=== PATIENT | female | born 1990 | race Caucasian/White ===

== ENCOUNTER 2016-08-04 18:43 | Inpatient (IN) | payer OTHER ==
[~2016-08-04] VITALS: Ht 167.6 cm; Wt 65.9 kg
--- NOTE | 2016-08-04 18:46 | ED.REPORT ---
HPI-Psychiatric Illness Date of Service Aug 04, 2016 ED Provider: Gisel Dodge MD Patient is a 25 year old female with a history of bipolar disorder, hypothyroidism, and prior catatonic episodes with psychiatric admissions who presents to the ED via [place] [facility] for a mental health evaluation after she demonstrated bizarre behavior this evening. [place] reports that they were called out to a location where a female was refusing to get out of a vehicle that did not belong to her. The patient took approximately 5 seconds to answer any questions and her answers did not make sense. Patient stated that the car belonged to her and that she could do whatever she wanted. Patient appeared to be under the influence of some substance and so was transferred to [facility] evaluation. Patient is completely uncooperative and is unable to provide any history or participate in the evaluation. The patient simply stares off into space. She refuses go into a medical gown and will not follow commands of police or staff. The patient does not appear to be taking proper care of herself. Patient is seen to have sores on her bilateral feet, with packing in a sore on her left foot. She has 9x previous admissions involuntary psychiatric admissions, including an admission to [facility]. Nursing Notes Stated Complaint: MENTAL HEALTH EVAL Nursing Notes Reviewed: Yes Allergies: Coded Allergies: No Known Allergies (Unverified , 08/04/16) General Time Seen by MD: 18:44 Chief Complaint Bizarre behavior Hx Obtained From: Police Unable to Obtain Hx: Uncooperative Risk-Psychiatric Illness Suicide Risk Stratification Suicide Risk Factors - Adult: : Prior psych admission: Substance abuse RF Statements: Risk factors N/A Past Medical History Past Medical History Bipolar disorder history of catatonic episodes with prior psychiatric admissions (9x total, with one to [facility]) history of substance abuse hypothyroidism Past Surgical History none reported Smoking History Unknown if Ever Smoker Social History Other Social History: Local resident Ambulatory Status Independent Review of Systems Unable to Obtain ROS Uncooperative Physical Exam Initial Vital Signs Vital Signs (First) Date Time Temp Pulse Resp B/P Pulse Ox O2 Delivery O2 Flow Rate FiO2 08/04/16 20:00 36.6 77 16 107/68 99 Room Air Initial VS: Reviewed Head / Eyes: Atraumatic, Normocephalic, PERRL ENT: Conjunctiva normal, No scleral icterus Neck: Supple, Full range of motion Respiratory: Breath sounds normal, Clear to auscultation, No respiratory distress Cardiovascular: Regular rate & rhythm, Heart sounds normal Abdomen / GI: Soft, Non-tender Skin: Warm, Dry, No cyanosis General/Constitutional: Awake, Alert Behavior: Positive: Uncooperative Patient refuses to speak or answer questions, simply stares. Unkempt. Neurologic: No motor deficits, No sensory deficits Unable to Evaluate: Positive: Uncooperative Upper Extremity / MS: No deformity, Neurologic intact, Vascular intact Lower Extremity / Pelvis / MS: No deformity, Neurologic intact, Vascular intact Ankle / Foot: Neurologic intact, Vascular intact Quarter inch ulceration to the left foot, with good granulation. Not actively oozing. Interpretation & Diagnostics Interpretation & Diagnostics: Urine Tox Screen: Positive for Marijuana, Methamphetamine, Opiates, TCAs, and Amphetamines. All else negative. Lab Results Interpretation Result Diagram: 08/04/16195408/04/161954 Test 08/04/16 19:55 08/04/16 20:50 08/04/16 21:11 White Blood Count 7.1th/mm3 (3.8-10.1) Red Blood Count 4.33mil/mm3 (3.90-5.20) Hemoglobin 12.8g/dL (12.0-15.6) Hematocrit 38.9% (35.0-46.0) Mean Corpuscular Volume 89.8fL (81-100) Mean Corpuscular Hemoglobin 29.6pg (27.0-35.0) Mean Corpuscular Hemoglobin Concent 32.9% (32.0-37.0) Red Cell Distribution Width 15.0% (12.3-15.4) Platelet Count 346bil/L (150-400) Neutrophils (%) (Auto) 53.0% (40-74) Lymphocytes (%) (Auto) 28.9% (14-46) Monocytes (%) (Auto) 10.4% (4-12) Eosinophils (%) (Auto) 7.0% (0-5) Basophils (%) (Auto) 0.6% (0-3) Sodium Level 138mEq/L (134-144) Potassium Level 3.4mEq/L (3.5-5.2) Chloride Level 100mEq/L (97-108) Carbon Dioxide Level 22mmol/L (18-29) Blood Urea Nitrogen 5mg/dL (6-20) Creatinine 0.74mg/dL (0.57-1.00) Estimat Glomerular Filtration Rate 136mL/min (>59) Glucose Level 105mg/dL (60-99) Calcium Level 9.3mg/dL (8.5-10.1) Total Bilirubin 0.8mg/dL (0.0-1.2) Aspartate Amino Transf (AST/SGOT) 44U/L (0-50) Alanine Aminotransferase (ALT/SGPT) 42U/L (0-32) Alkaline Phosphatase 88U/L (25-150) Total Protein 7.2g/dL (6.4-8.4) Albumin 4.1g/dL (3.4-5.0) Procalcitonin 0.05ng/mL (0.00-0.08) Thyroid Stimulating Hormone (TSH) 25.860uIU/mL (0.450-4.500) Free Thyroxine 1.36ng/dL (0.82-1.77) Alcohols < 10mg/dL (0-10) Lactic Acid Level 1.9mmol/L (0.4-2.0) Urine Color Dark yellow (YELLOW) Urine Appearance Cloudy (CLEAR,HAZY) Urine pH 6.0 (5.0-8.0) Urine Specific [place] >1.030 (1.003-1.035) Urine Protein Tracemg/dL (NEG,TRACE) Urine Glucose (UA) Negativemg/dL (NEGATIVE) Urine Ketones Tracemg/dL (NEGATIVE) Urine Occult Blood Small (NEGATIVE) Urine Nitrite Negative (NEGATIVE) Urine Bilirubin Moderate (NEGATIVE) Urine Ictotest Positive (Negative) Urine Urobilinogen Normalmg/dL (NORMAL) Urine Leukocyte Esterase Small (NEGATIVE) Urine RBC 3-10/hpf (0-2) Urine WBC >50/hpf (0-5) Urine Epithelial Cells Moderate/hpf (NONE-MOD) Urine Crystals None seen (NONE SEEN) Urine Bacteria Many/hpf (NONE-FEW) Urine Hyaline Casts None/lpf (NONE) Urine Granular Casts None seen (NONE SEEN) Urine Waxy Casts None seen (NONE SEEN) Urine Red Blood Cell Casts None seen (NONE SEEN) Urine White Blood Cell Casts None seen (NONE SEEN) Urine Mucus None seen (None Seen) Urine Trichomonas None seen (NONE SEEN) Urine Yeast None (NONE SEEN) Urinalysis Comment None Urine Culture Reflexed Indicated Re-Eval/Medical Decision Med Decision/Clinical Course 25-year-old female with extensive psychiatric history and substance abuse here by police nonresponsive and combative. Differential diagnosis includes but is not limited to psychiatric break versus substance abuse versus catatonia versus infectious process. CBC and CMP are unremarkable. TSH is elevated, however, free T4 is within normal limits. Patient does have UTI. She was given a gram of Rocephin in the emergency department. She also has multiple superficial cellulitic areas on her feet. She is otherwise medically cleared and seen by [facility], however, she was to drowsy from the Benadryl, Haldol, and Ativan she was given at onset of her stay here for combativeness. He recommends that she continue to metabolize medications and be reevaluated in the morning. Her care was transitioned to Dr. Slim Mittal who will give her a prescription for Keflex prior to her transfer to psychiatric facility. I anticipate that she will be detained. She is gravely disabled. Re-Evaluation/Progress #1: Time of Eval: 18:58 Re-Evaluation/Progress Note: Patient was evaluated and placed into seclusion, as the patient is uncooperative and trying to leave the ED. Guilherme Castano called. Re-Evaluation/Progress #2: Time of Eval: 20:24 Re-Evaluation/Progress Note: Rechecked the patient, who has now calmed down and is sleeping. She awakes easily but does not answer questions. Patient was examined. Re-Evaluation/Progress #3: Time of Eval: 00:00 Re-Evaluation/Progress Note: Rechecked the patient. She awakes easily but does not respond to questions. Consultation #1: Consulted With: cooler worker Call Returned at: 20:59 Note: Spoke with the ED PACKAGE DRIER, who has evaluated the patient. She is currently too sedated to cooperate with psychiatric evaluation. He suggests DCR dispatch once she is awake. Consultation #2: Consulted With: cooler worker Call Returned at: 00:51 Note: Spoke with the DCRCarl. He agrees to come evaluate the patient. Consultation #3: Call Returned at: 01:40 Note: DCR tried to evaluate the patient in ED, but she is now too sedated to participate. He suggests that the patient sleep in the ED overnight and that she be re-evaluated in the AM. [facility] has a bed available for the patient and will "hold" that bed for her unless another ED patient needs placement. Discharge & Departure Shift Change Sign-Out Patient Care Transferred: Yes Discussed Complaint(s): Yes Laboratory Evaluation: Back, reviewed by me Additonal Information: Sedated, awaiting PACKAGE DRIER evaluation Impression: Primary Impression: Catatonic agitation Additional Impressions: UTI (urinary tract infection) Urinary tract infection type: acute cystitis Hematuria presence: without hematuria Qualified Code: N30.00 - Acute cystitis without hematuria Acute situational disturbance Polysubstance abuse Referrals: [facility] Care Transferred to: Dr. Mittal Care Transferred at: 03:00 Scribe Attestation Portions of this note were transcribed by Sayra Andujar. I, Dr. Dodge personally performed the history, physical exam and medical decision-making; I reviewed and confirmed the accuracy of the information in the transcribed note. Signed by: Gary Montoya, 08/05/2016 0155 Gisel Dodge MD Aug 04, 2016 18:46 Sayra Andujar Aug 04, 2016 19:18
[2016-08-04] MEDS ORDERED: Haloperidol 5 mg/mL Inj ONE (18:47)
[2016-08-04 20:00] VITALS: BP 107/68; PULSE 77; RESP 16; O2SAT 99
[2016-08-04 20:07] LABS: BASOPHILS % (AUTO) 0.6 % (0-3); MONOCYTES % (AUTO) 10.4 % (4-12); Mean Corpuscular Hemoglobin 29.6 pg (27.0-35.0); Mean Corpuscular Volume 89.8 fL (81-100); Platelet Count 346 bil/L (150-400)
[2016-08-04 22:02] LABS: APPEARANCE,URINE CLOUDY (CLEAR,HAZY); COLOR,URINE DARK YELLOW (YELLOW); OCCULT BLOOD,URINE SMALL (NEGATIVE); UROBILINOGEN,URINE NORMAL (NORMAL)
[2016-08-04 22:04] LABS: ICTOTEST,URINE POSITIVE (Negative)
[2016-08-05] MEDS ORDERED: cefTRIAXone Inj 1,000 MG, Lidocaine PF 1% Inj 2.1 ML in Syringe 0 EACH IM ONE ×3
[2016-08-05 01:35] VITALS: BP 112/71; PULSE 94; RESP 14; O2SAT 95
[2016-08-05 05:33] VITALS: BP 113/67; PULSE 72; RESP 14; O2SAT 96
[2016-08-05] MEDS ORDERED: Ammonia Aromatic Inhalant Ampule INHALATION ONE (11:34)
[2016-08-05 14:20] VITALS: BP 123/78; PULSE 111; RESP 20; O2SAT 98
[2016-08-05] MEDS ORDERED: Benzocaine-Menthol Lozenge 2/Pkg PO PRN (18:35)
[2016-08-05] MEDS ORDERED: Alum-Mag Hydrox-Simeth 30 mL Suspension PO PRN (18:35)
[2016-08-05] MEDS ORDERED: Magnesium Hydroxide 10 mL Oral Concentration PO PRN (18:35)
[2016-08-05] MEDS ORDERED: LORazepam 1 mg Tablet PO PRN (18:45)
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
--- NOTE | 2016-08-05 20:57 | NUR ---
A Note 08/05/16 D- Patient came onto the unit at 1800. She ate a snack provided with her by the emergency room. Patient took a shower and changed her clothes. She appears well groomed. A- Patient declined to sign any of her paperwork. She used verbally abusive language in opposition to the admission process. She then requested to take a shower. After the shower she appeared more calm and cooperative, but declined to see her family without heavy encouragement. She visited for a few minutes before returning to bed. Patient had been uncooperative with returning the scrubs from the Emergency Department which had strings. Staff was able to get them when she went to sleep. Patient asked for her belongings which were being inventoried and washed. She has since been in bed. P- Continue current treatment plan.
--- NOTE | 2016-08-06 05:19 | NUR ---
nursing, nights, 11-7 s/o- has appeared to sleep after 2129 during q 15 minute assessments. a- no apparent distress. p- monitor behavior/emotional state, quality, times and amount of sleep, use and effect of medication. brian
[2016-08-06 09:00] VITALS: BP 117/75; PULSE 106; RESP 14
[2016-08-06] MEDS ORDERED: LEVO100T6 PO (12:15)
[2016-08-06] MEDS ORDERED: Benzocaine-Menthol Lozenge 2/Pkg PO PRN (12:30)
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
--- NOTE | 2016-08-06 14:18 | PCM.CHPMED ---
Subjective Date of Service: Aug 06, 2016 Primary Physician: Admitting Physician: Juan Posada MD Primary Care Physician: Sharyn Attending Physician: Juan Posada MD Admit Status: Admit to [facility] Team Chief Complaint: Chief Complaint: Medicine consulted for hypothyroidism. History of Present Illness: History limited due to uncooperative patient to talk. answers " i don't know "to most questions 25-year-old lady is was medical history of hypothyroidism, bipolar disorder, polysubstance abuse currently admitted to mental health unit due to bizarre behavior . She states she was diagnoses with hypothyroidism years ago. She admits she does not take her thyroid replacement. Last time she took" months". Denies weight gain or constipation. She also has multiple foot ulcers. Denies urinary complaint hospital course: Admitted to [facility], initial labs urinalysis with pyuria , ceftriaxone given in emergency room. Low potassium 3.4, TSH 25, free T4 1.36 , urine toxicology Positive for Marijuana, Methamphetamine, Opiates, TCAs,and Amphetamines. Medicine consulted for hypothyroidism, UTI, multiple foot ulcers. Review of Systems: Review of systems limited due to uncooperative patient [facility] Past Medical History Hypothyroidism Bipolar disorder Polysubstance abuse Surgical History unknown,she says " I don't know" Home Medications synthroid 100mcg daily Allergies: Coded Allergies: No Known Allergies (Unverified , 08/04/16) Family History Family History unable to obtain , uncooperative patient Social History Hx Substance Use: Yes (currently using) Smoking Status: Unknown if Ever Smoker Exam Vital Signs Vital Sign - Last Date Time Temp Pulse Resp B/P Pulse Ox O2 Delivery O2 Flow Rate FiO2 08/05/16 14:20 36.5 111 20 123/78 98 Room Air General: Alert, Oriented X3, Other (uncooperative) Head: Normal Neck: Supple, No Thyromegaly Chest & Lungs: Clear to auscultation & percussion Cardiovascular: Exam Unremarkable Abdomen: Non-tender Extremities: Other (multiple( 3) small ulcers on both foot on plantar side,no discharge.) Neurological: Grossly Neurologically Intact Lab and Diagnostics Result Diagram: 08/04/16195408/04/161954 Assessment & Plan Assessment 25-year-old lady is was medical history of hypothyroidism, bipolar disorder, polysubstance abuse currently admitted to mental health unit due to bizarre behavior . # asymptomatic UTI, acute -Pyuria on urinalysis, urine culture growing pansensitive Escherichia coli -will treat with Keflex for 2 more days. #Hypothyroid state due to medication noncompliance, chronic -Patient used to take Synthroid 100 mcg daily -TSH 25, free T4 1.36 -continue prior dose of 100mcg daily -needs to recheck TFT in 6-8 weeks outpatient # multiple foot ulcers -local wound care by RN # bipolar disorder -management per psychiatrist no need for dvt and GI prophylaxis ,patient ambulatory default full code, thank you for the consult ,will follow along with you. Problems: copies to: Juan Posada MD, Melaku MD Aug 06, 2016 14:18
[2016-08-06] MEDS ORDERED: Potassium Chloride 20 mEq SR Tablet PO ONE (14:20)
--- NOTE | 2016-08-06 16:19 | NUR ---
Nursing Notes [id number] S: Can you just leave me alone O: Patient spent most of his day in room, with her eyes closed and in her bed, arousable to voice. Pt. appears disheveled, her hair appears matted. Pt did not participate in group. Isolated herself today. A: Pt affect flat. Pt has some open wounds on her feet bilat and has a closed vesicle on her left hand. Pt refused to let me change her dressings on her feet. Pt refused to let medical hospitalist examine her feet as well. When accompanying the medical MD to her room pt states I dont like her referring to me. This RN asked her why is it that she feels that she would say that, then she all of a sudden had an Amharic accent and just said she I just dont Pts TSH is 25.86, medical hospitalist consulted on patient. Started her on 50mcg of levothyroxine, started on cephalexin for UTI P: Monitor for safety and response to treatment. Follow plan of care.
--- NOTE | 2016-08-06 16:32 | HP ---
[address] [address] HISTORY AND PHYSICAL PATIENT: CRESCENCIO MARTI : 1990 MR#: [id number] ADMIT: 08/05/2016 JOB ID: [id number] IDENTIFICATION: The patient is a 25-year-old, white female. Currently, she is homeless. She had been living with her boyfriend in his car. She is unemployed. The car was parked at [employer] in [place]. REASON FOR ADMISSION: Police were called to evaluate the patient, who was inside another person's car and refusing to get out. She stated she owned the car and she owned the business. She appeared highly intoxicated. HISTORY OF PRESENT ILLNESS: Client presents today for evaluation and treatment of psychosis. She is complaining of feeling exhausted and needing to rest. The ED staff and the police noted bizarre behavior. She was uncooperative, a poor historian, and combative. She believed that the vehicle she was in was her car and she believes that she owned a business. A priscilla bruner was called to get her out of the police car and into the emergency department. I met with her for a relatively brief evaluation as she was a poor historian and would essentially respond too none of my questions. I reviewed course and records kept by [facility], as well as her fci papers. Client's main issue is an altered mental status and significant intoxication and addiction. Client is a poor historian and I am unable to identify how long this has been present. There is a report that she has been detained nine times on involuntary treatment holds in [place]. She stated that she grew up in the [place] [facility] and has been to [facility] for 10 weeks in 2016, as well as [facility], and [facility]. I do not have any records at this time. At present, her condition is of a severe intensity, manifesting with symptoms of thought disorganization, emotional lability, impaired executive cognitive function, and impaired reality testing and judgment. All the above appears to be made worse by poor sleep, by drug use (client's urine tox was positive for amphetamines, opiates, and THC). She could not participate in a psychiatric or physical review of systems. PAST MEDICAL HISTORY: MEDICATIONS: Client denies. There is a chart note that she was on Synthroid from the ED due to impaired thyroid functioning. ALLERGIES: None. ILLNESSES: Hypothyroidism. A 1/4-inch lesion on left foot. FAMILY MEDICAL HISTORY: Unknown. PAST PSYCHIATRIC HISTORY: Client reportedly at [facility] for 10 weeks in 2016, at [facility] from January to February 2016. There are also reports that she has been admitted to [facility] and [facility] inpatient units. PSYCHOSOCIAL HISTORY: Client was born in [place]. She was unable to answer questions about micrographics services supervisor trauma or education. She refused to answer any questions about drug use. LETHALITY: Client did deny suicidal ideation. DENOMINATIONAL, RELATIONSHIP, LEGAL STATUS: All unknown. PHYSICAL EXAMINATION: Client appeared well-hydrated. Her vital signs were 123/78, pulse was 111 respiratory 20, afebrile. Physical exam reviewed from the ED and normal except for 1/4-inch lesion on left foot. MENTAL STATUS: Client disheveled, poor eye contact. Behavior: Lethargic and withdrawn. Attitude: Aloof, detached. Speech: Monotone, mute,, or one-word responses. Mood was dysphoric. Affect: Congruent, flat, and restricted. Thought process: Client is unable to relate a coherent history or unwilling. She did not appear to be responding to internal stimuli. Thought content significant for poverty of thought, although she did deny suicidal ideation or auditory hallucinations. Client refused to participate in orientation, memory, or attention aspects of my exam. Insight and judgment severely impaired. Impulse control: Unable to handle impulses of fear and hunger. Reality testing markedly impaired. Competence to handle current stressors is severely impaired. IMPRESSION: The patient is a 25-year-old, white female, who has been homeless and using multiple illicit substances, ranging from heroin to methamphetamine to marijuana. She was found severely confused in a car owned by a local business network design architect. She was placed on a 72-hour involuntary treatment hold for grave disability and admitted for evaluation and stabilization. She believed that she owned the car that she was in, as well as the business that the car was parked in front of. She was combative with police when she arrived to the ED and a code bruner was required to get her from the police car to the ED. In the ED, she received Haldol, Benadryl, and Ativan, and has been relatively sedated ever since. She also received a dose of Rocephin and has been placed on Keflex 500 b.i.d. for an urinary tract infection that was cultured positive for E. coli. Her TSH was 28 in the ER and free T4 was 1.36. Client carries multiple different diagnoses from other inpatient units, ranging from bipolar disorder to schizophrenia, to substance-induced thought disorder. It would be helpful to have these summaries in order to further clarify diagnosis. DIAGNOSIS: [place] I. Psychosis, unspecified. Rule out substance-induced psychosis. Rule out schizophrenia. Rule out bipolar mood disorder. [place] II. Deferred. [place] III. 1. Urinary tract infection, Escherichia coli. 2. A 1/4-inch ulceration on left foot. [place] IV. Severe. [place] V. Current Global Assessment of Functioning equal to 25. PLAN: Recommend client be admitted to our unit and be provided with a high degree of safety through the structure and active adult engagement she will receive here. Will have her participate in one-to-one unit and group activities focused on improving coping skills, reality based thinking and helping her identify a treatment plan should desire for narcotics return after discharge. I have ordered an Internal Medicine consult for recommendations around potential thyroid replacement. Will start client on Synthroid 50 mcg daily pending recommendations from Internal Medicine. I have also recommended a wound consult to help with dressing changes and recommendations regarding foot ulcer. Client is on a 72-hour involuntary treatment hold for grave disability. Anticipate 7-10 day stay, dependent on how client responds to treatment. Will start Zyprexa 10 mg h.s. for psychotic symptoms. MTDD
--- NOTE | 2016-08-06 16:38 | HP ---
[address] [address] HISTORY AND PHYSICAL PATIENT: CRESCENCIO MARTI : 1990 MR#: [id number] ADMIT: 08/05/2016 JOB ID: [id number] CONTINUATION: Started was started on Keflex 500 b.i.d. for an urinary tract infection that was cultured for E. coli. She was also given a dose of Rocephin. Her TSH was 28 in the ER and free T4 was 1.36. Client carries multiple different diagnoses from the inpatient unit she had been on, ranging from bipolar disorder to schizophrenia, to substance-induced thought disorder. It would be helpful to have some of these summaries in order to further clarify diagnosis. DIAGNOSIS: Durham I. Psychosis, unspecified. Rule out substance-induced psychosis. Rule out schizophrenia. Rule out bipolar mood disorder. Durham II. Deferred. Durham III. 1. Urinary tract infection, Escherichia coli. 2. A 1/4-inch ulceration on left foot. Durham IV. Severe. Durham V. Current Global Assessment of Functioning equal to 25. PLAN: Recommend client be admitted to our unit and be provided with a high degree of safety through the structure and active adult engagement she will receive here. Will have her participate in one-to-one unit and group activities focused on improving coping skills, reality based thinking and helping her identify a treatment plan should desire for narcotics return after discharge. I have ordered an Internal Medicine consult for recommendations around potential thyroid replacement. Will start client on Synthroid 50 mcg daily pending recommendations from Internal Medicine. I have also recommended a wound consult to help with dressing changes and recommendations regarding foot ulcer. Client is on a 72-hour involuntary treatment hold for grave disability. Anticipate 7-10 day stay, dependent on how client responds to treatment. Will start Zyprexa 10 mg h.s. for psychotic symptoms.
--- NOTE | 2016-08-06 19:06 | NUR ---
Observations 0900 to 2130 Pt affect and mood was isolative, labile and flat. Pt speech and eye contact was ok. Pt was in bed most of the day. Pt ate meals in D.R. and ate approximately 100% of meals. Pt declined to attend group and unit activities today. Pt declined to attend community meeting and did not set a goal for the day. Pt was unsocial and keeps to herself. Pt took a shower in the evening. Pt maintained behavior throughout the shift. Pt was polite and cooperative. Pt was observed every 15 minutes throughout the shift as ordered.
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
--- NOTE | 2016-08-07 05:34 | NUR ---
Roustabout 11pm to 7am Pt slept through the night with no interruptions. Monitored q 15 minutes for safety, location and accountability.
--- NOTE | 2016-08-07 12:30 | PCM.DIMED ---
Discharge Instructions Date of Service Aug 07, 2016 Dates of Hospitalization Aug 05, 2016 at 16:54 Discharge Diagnosis Discharge Diagnosis Substance induced Mood DO Substance Induced Psychosis Diet No restrictions Activity No restrictions Stan Kelly DO Aug 07, 2016 12:30
[2016-08-07] MEDS ORDERED: LEVO100T6 PO (12:31)
--- NOTE | 2016-08-07 15:04 | NUR ---
Portrait Painter./ c.m. S.:"I'm entitled to have my privacy and confidentiality. I don't need your help..." O.: met with pt., doctor and med. student together to discuss pt.'s progress. She slept well last night. She denied SI/HI, denied AH/VH. She said that she was going to stay with her mother, family member or a friend if she is discharged today. She refused help with follow up arrangements. She refused to give a name of a doctor with whom she would follow up for her medical and mental health issues. "I'm entitled to have my privacy. This is a confidential information." She accepted a phone # for [facility] in a case of emergency. She didn't want to share her information without her control. Pt. also refused to give staff a name of her friend who was going to pick her up. A.: pt. is quiet, more social with male peers, looks entitled and easily frustrated. P.: monitor behavior, follow care plan.
--- NOTE | 2016-08-07 15:17 | NUR ---
Obs Dayshift Pt refused to participate in morning activities, upon DC pt took an hour long shower, trying to refuse to put street clothes on stating that she was more comfortable in our scrubs and wearing a towel on her head. Pt signed DC paperwork and left it behind refusing to take it, and refusing staff assistance. Pt stated many times that she saw her frined walking up and was waiting downstairs for her. Pt refused to call [facility]. DC'd approx [phone]
--- NOTE | 2016-08-07 16:01 | NUR ---
Nursing: Day shift: Also Discharge. Mariia was lying on bed with towel on head most of the morning. She was reluctant to allow the hospitalist to check wounds. However, these were examined, one was cultured, and all were redressed. Pt complained about jingle writer being rude to her. After she received information that she had been discharged, she replied that it would be better for her if she went tomorrow. However, she packed her belongings. She was given crisis respite number, her mother's number and the number of a friend. She first stated that she would be picked up by her mother. A few minutes later, she stated that a friend would pick her up. That she would just leave unit and wait for the friend at the [facility] entrance. She signed all paperwork for discharge. However, she did not put the papers with her belongings and when she left, her papers were found in her room. Pt DID have prescription for Levothyroxine with her as she left the unit. Pt left the unit, [id number], with belongings, at 1415. Pt had refused any follow up appointments or arrangements. Denied intent to hurt self to jingle writer as she left the unit. Addendum. Before 1530, unit received a call that pt was still sitting on bench in front of [facility] entrance. Pt had vacated that area by 1600. Addendum: 08/07/16 at 1648 by ED RAYO RN Outcomes: Not all met at time of discharge. Since pt refused follow up care arrangements, safe self care, optimal level of fuction, not met. Pt interacted minimally with pers not meeting the 'Optimal appropriate social interactions."
--- NOTE | 2016-08-07 19:02 | PCM.PNMED ---
Subjective Date of Service Aug 07, 2016 Subjective patient more cooperative today to be examined,afebrile Exam Vital Signs Vital Sign - Last Date Time Temp Pulse Resp B/P Pulse Ox O2 Delivery O2 Flow Rate FiO2 08/06/16 09:00 36.4 106 14 117/75 08/05/16 14:20 98 Room Air Exam General: Alert, Oriented X3, Other (uncooperative) Head: Normal Neck: Supple, No Thyromegaly Chest & Lungs: Clear to auscultation & percussion Cardiovascular: Exam Unremarkable Abdomen: Non-tender Extremities: Other (multiple( 4) small ulcers on both foot on plantar and dorsal side,left dorsal ulcer 2x2 cm with some discharge,sent for culture.) Neurological: Grossly Neurologically Intact IVs and Medications Medications Reviewed: Medications were reviewed in detail Lab and Diagnostics Result Diagram: 08/04/16195408/04/161954 Assessment & Plan 25-year-old lady is was medical history of hypothyroidism, bipolar disorder, polysubstance abuse currently admitted to mental health unit due to bizarre behavior . # asymptomatic UTI, acute -Pyuria on urinalysis, urine culture growing pansensitive Escherichia coli -continue Keflex for 1 more day to complee 3 day course. #Hypothyroid state due to medication noncompliance, chronic -Patient used to take Synthroid 100 mcg daily -TSH 25, free T4 1.36 -continue prior dose of 100mcg daily -needs to recheck TFT in 6-8 weeks outpatient # multiple chronic foot ulcers -local wound care by wound care -no need for antibiotics ,local wound care seems to suffice # bipolar disorder -management per psychiatrist no need for dvt and GI prophylaxis ,patient ambulatory default full code, thank you for the consult ,will sign off.Please call hospitalist team if any questions . Toi Cote MD Aug 07, 2016 19:02
--- NOTE | 2016-08-08 00:34 | DIS ---
[address] [address] DISCHARGE SUMMARY PATIENT: CRESCENCIO MARTI : 1990 MR#: [id number] ADMIT: 08/05/2016 JOB ID: [id number] DIS: 08/07/2016 ADMITTING DIAGNOSES INCLUDE: AXIS I: 1. Psychotic disorder, not otherwise specified. 2. Rule out substance induced psychoses. 3. Rule out bipolar disorder, not otherwise specified. AXIS II: Deferred. AXIS III: 1. Urinary tract infection. 2. Ulceration of her left foot. AXIS IV: Severe. AXIS V: Global Assessment of Functioning at current 25. DISCHARGE DIAGNOSES INCLUDE: AXIS I: 1. Substance induced psychoses. 2. Substance induced mood disorder. AXIS II: Cluster B personality features. AXIS III: 1. Urinary tract infection. 2. Ulceration of her left foot. AXIS IV: Stressors are noted for chronic substance abuse, including methamphetamine and opiates. AXIS V: Global Assessment of Functioning at current 40. REASON FOR ADMISSION: Patient was a 25-year-old female with noted history of admission through the emergency department after [facility] detained with considerable concerns of agitation, irritability and altered mental status. During the course of hospitalization, patient was given medications, including Zyprexa, with significant improvement of her overall presentation. She reportedly remains quite dysphoric, irritable and labile, however, with refusal to cooperate with staff interventions. She isolated to her room for much of her stay, but did participate in interventions. During the course of hospitalization, patient did have consultation from the hospitalist team due to ulcerations to her feet and also significant difficulties with UTI and thyroid presentation. Recommendations from the hospitalist team were to finish off her antibiotic regimen and also follow up care for wound care as related to her ulcerations. They did not feel that her Synthroid needed to be altered at this time. On the day of discharge, the patient met with myself, counter caser and medical student, and declined any potential referrals for chemical dependency treatment. She was open to referrals to [facility] for interim care, and calls will be placed accordingly. She indicated that she is not on any medications at this time for psychotropic reasons and deferred any further interventions of supportive care. CONDITION ON THE TIME OF DISCHARGE: Patient's mood was notably dysphoric. Her affect was irritable, labile. Her thought process showed no evidence of racing thoughts, flight of ideas, loose or disconnected thinking. Her thought content: There was no evidence of suicidal ideation, intent, or plan. No evidence of homicidal ideation. She appeared to be mildly paranoid and expressed delusions of reference identifying that she believed that the [facility] built the current hospital. She chuckled somewhat inappropriately. She was alert, oriented to time and place. Her attention and concentration were poor. Insight and judgment were deemed poor. DISCHARGE PLANS INCLUDE: 1. Recommendations to transition to [facility] in [place] for step-down care and support. 2. Patient was encouraged to consider referrals to chemical dependency treatment, but has declined at this time. 3. No recommendations for medications given at this time, other than continuation of her doses of Synthroid. 4. Patient was encouraged to follow up with medical care at local clinics for ulcerations of her feet, however, there is no recommendations for antibiotic regimen at this time.
== END 2016-08-07 14:15 | disposition home or self-care (01) | DRG 897 ==
LOC: SED 18:43 → MERGE 08-05 16:54 → EDUNIT# 08-05 16:54 → MHC 08-05 16:54
PROVIDERS: ADMIT Psychiatry & Neurology Psychiatry; ATTEND Psychiatry & Neurology Psychiatry
DX: F19.150 Other psychoactive substance abuse with psychoactive substance-induced psychotic disorder with delusions (principal); N39.0 Urinary tract infection, site not specified; Z65.3 Problems related to other legal circumstances; Z59.0 Homelessness; B96.20 Unspecified Escherichia coli [E. coli] as the cause of diseases classified elsewhere; L97.529 Non-pressure chronic ulcer of other part of left foot with unspecified severity; Z91.19 Patient's noncompliance with other medical treatment and regimen; E03.9 Hypothyroidism, unspecified

== ENCOUNTER 2016-09-25 13:31 | Emergency (ER) | payer OTHER ==
[~2016-09-25 13:31] MED LIST: LEVO100T6 PO
[2016-09-25 13:40] VITALS: BP 103/72; PULSE 70; RESP 18; O2SAT 100
[2016-09-25 15:49] LABS: Mean Corpuscular Hemoglobin 29.2 pg (27.0-35.0); Platelet Count 352 bil/L (150-400)
[2016-09-25 16:52] LABS: BASOPHILS % (AUTO) 2 % (0-3); EOSINOPHILS % (AUTO) 0 % (0-5); MONOCYTES % (AUTO) 9 % (4-12); NEUTROPHILS % (AUTO) 41 % (40-74)
--- NOTE | 2016-09-25 21:21 | ED.REPORT ---
HPI-Psychiatric Illness Date of Service September 25, 2016 ED Provider: Regis Rosen History of Present Illness: 25yo female brought in by police for trespassing and bizarre behavior, here for prison clearance. Police now report they have a name for her and will give her a court date. Pt. refuses to answer any questions on initial exam. Nursing Notes Stated Complaint: FIT FOR CORRECTION Chief Complaint: Psychiatric Complaint Nursing Notes Reviewed: Yes General Time Seen by MD: 15:07 Chief Complaint Bizarre behavior Hx Obtained From: Patient Arrived By: Police Onset Occurred: Onset unknown Symptom Duration: Duration unknown Immunizations: Unknown Risk-Psychiatric Illness Risk Notes: Patient refuses to talk Suicide Risk Stratification RF Statements: Risk factors reviewed (but patient refuses any answers) Past Medical History Past Medical History Notes: unable to assess. Ambulatory Status Independent Review of Systems Unable to Obtain ROS Patient condition, Uncooperative Physical Exam Initial Vital Signs Vital Signs (First) Date Time Temp Pulse Resp B/P Pulse Ox O2 Delivery O2 Flow Rate FiO2 09/25/16 13:40 36.3 70 18 103/72 100 Room Air Initial VS: Reviewed General/Constitutional: Not toxic appearing Alertness: Positive: Disoriented Behavior: Positive: Hostile Pt. tried to run out of ED, was caught in waiting room by staff and escorted back to P2. Abnormal Mood/Affect: Positive: Flat affect Abnormal Thinking / Perception: Positive: Delusions - paranoid Pt. thought I was Thor and she has insight into secrets of the universe. Interpretation & Diagnostics Interpretation & Diagnostics: Meth and THC on UDS Lab Results Interpretation Result Diagram: 09/25/16 1532 09/25/16 1532 Test 09/25/16 15:32 White Blood Count 9.9th/mm3 (3.8-10.1) Red Blood Count 4.56mil/mm3 (3.90-5.20) Hemoglobin 13.3g/dL (12.0-15.6) Hematocrit 40.6% (35.0-46.0) Mean Corpuscular Volume 89.0fL (81-100) Mean Corpuscular Hemoglobin 29.2pg (27.0-35.0) Mean Corpuscular Hemoglobin Concent 32.8% (32.0-37.0) Red Cell Distribution Width 14.3% (12.3-15.4) Platelet Count 352bil/L (150-400) Neutrophils (%) (Auto) 41% (40-74) Lymphocytes (%) (Auto) 46% (14-46) Monocytes (%) (Auto) 9% (4-12) Eosinophils (%) (Auto) 0% (0-5) Basophils (%) (Auto) 2% (0-3) Band Neutrophils % 2% (1-5) Sodium Level 137mEq/L (134-144) Potassium Level 4.0mEq/L (3.5-5.2) Chloride Level 96mEq/L (97-108) Carbon Dioxide Level 19mmol/L (18-29) Blood Urea Nitrogen 10mg/dL (6-20) Creatinine 0.80mg/dL (0.57-1.00) Estimat Glomerular Filtration Rate 124mL/min (>59) Glucose Level 123mg/dL (60-99) Calcium Level 9.6mg/dL (8.5-10.1) Total Bilirubin 0.8mg/dL (0.0-1.2) Aspartate Amino Transf (AST/SGOT) 46U/L (0-50) Alanine Aminotransferase (ALT/SGPT) 35U/L (0-32) Alkaline Phosphatase 86U/L (25-150) Total Protein 7.9g/dL (6.4-8.4) Albumin 4.3g/dL (3.4-5.0) Thyroid Stimulating Hormone (TSH) 6.910uIU/mL (0.450-4.500) Re-Eval/Medical Decision Med Decision/Clinical Course Pt. evaluated by REC THERAPIST who advised overnight stay in ED and reassess mental state in AM. Ordered 25mg PO seroquel to aid sleep in ED Denny AjMelida DO: 0638am: I assumed care of this patient at 6 AM. My initial interview with her reveals a patient who is initially calm resting on the bed. She states that her name is Sunshine, she does not know where she is at. When I attempt further discussion with her, she becomes much more agitated and essentially the conversation goes nowhere. She still exhibits some signs of psychomotor agitation which could be related to her recent methamphetamine abuse. Will continue to let her metabolize and reevaluate her later in the day. Discharge & Departure Shift Change Sign-Out Patient Care Transferred: Yes Additonal Information: Pt. care transferred to Dr. Mittal at shift change, final disposition to be determined in AM when hopefully, patient will be more lucid. Impression: Primary Impression: Methamphetamine abuse Additional Impression: Psychosis Psychosis type: brief psychotic disorder Qualified Code: F23 - Brief psychotic disorder Care Transferred to: Dr. Mittal Care Transferred at: 21:26 EDSupervising Provider for APC: Regis Mittal MD, Christopher R PAC September 25, 2016 21:21 Denny John DO September 26, 2016 06:41
[2016-09-26] MEDS ORDERED: LORazepam 2 mg Tablet PO ONE ×2 (06:45→10:35)
[2016-09-26 08:37] VITALS: BP 84/52; PULSE 63; RESP 16; O2SAT 99
[2016-09-26] MEDS ORDERED: OLANZapine Zydis ODT 5 mg Tablet PO ONE (12:30)
[2016-09-26 15:54] VITALS: BP 101/60; PULSE 83; RESP 16; O2SAT 100
== END 2016-09-26 15:55 | disposition home or self-care (01) ==
LOC: EDBD 13:31 → MERGE 13:31 → SED 13:31
DX: F15.10 Other stimulant abuse, uncomplicated (principal); F23 Brief psychotic disorder